=== PATIENT | female | born 1985 | race Caucasian/White ===

== ENCOUNTER 2017-03-11 15:52 | Emergency (ER) | payer SELFPAY, OTHER ==
[2017-03-11] MEDS: DOCUSATE 100 MG/10 ML SOLUTION. AU (16:23)
== END 2017-03-11 17:24 | disposition home or self-care (01) ==
LOC: ER 15:52
DX: H61.23 Impacted cerumen, bilateral (principal)
CPT/HCPCS: 69209; 99282